=== PATIENT | male | born 1980 | race Hispanic/Latino ===

== ENCOUNTER 2024-05-06 12:40 | Emergency (ER) | payer OTHER ==
[~2024-05-06] VITALS: Ht 182.9 cm; Wt 146.2 kg
[2024-05-06] MEDS ORDERED: METFORMIN HCL500 MG PO (13:03)
[2024-05-06] MEDS ORDERED: MOUNJARO2.5 MG/0.5 (13:03)
[2024-05-06] MEDS ORDERED: ARIMIDEX1 MG PO (13:03)
[2024-05-06] MEDS ORDERED: DONNATAL/LIDOCAINE/MAALOX 30 ML SUSP PO ONE (13:15)
[2024-05-06] MEDS ORDERED: SODIUM CHLORIDE 0.9% 1000ML 1,000 ML ONE (13:22)
[2024-05-06] MEDS ORDERED: IOPAMIDOL 370 MG/ML 100 ML INFUS..BTL INJ ONE (13:22)
[2024-05-06] MEDS: KETOROLAC TROMETHAMINE 30 MG/ML VIAL IV STA (13:33)
[2024-05-06] MEDS: FAMOTIDINE 20 MG/2 ML VIAL IV STA (13:33)
[2024-05-06] MEDS: ONDANSETRON HCL INJ 2MG/ML 2ML 2 MG/ML VIAL IV STA (13:34)
[2024-05-06] MEDS: SODIUM CHLORIDE 0.9% 100 ML IV ONE (14:33)
[2024-05-06] MEDS ORDERED: OMEPRAZOLE40 MG PO (15:18)
[2024-05-06] MEDS ORDERED: ACETAMINOPHEN-1 EAC4 PO (15:20)
[2024-05-06 15:57] VITALS: PULSE 64; RESP 18; TEMP 97.6; O2SAT 98
[2024-05-06] MEDS ORDERED: CLOMID (22:42)
== END 2024-05-06 16:10 | disposition home or self-care (01) ==
LOC: FSED 12:53
DX: R10.13 Epigastric pain (principal); K29.80 Duodenitis without bleeding; K80.20 Calculus of gallbladder without cholecystitis without obstruction; R11.0 Nausea; E11.65 Type 2 diabetes mellitus with hyperglycemia
CPT/HCPCS: 71046; 74177; 76705; 80053; 80076; 81003; 84484; 85025; 93005; 99283; J1885; J2405; J7030; Q9967

== ENCOUNTER 2024-05-06 18:40 | Inpatient (IN) | payer OTHER ==
[~2024-05-06] VITALS: Ht 190.5 cm; Wt 105.8 kg
[~2024-05-06 18:40] MED LIST: ACETAMINOPHEN-1 EAC4 PO; ARIMIDEX1 MG PO; METFORMIN HCL500 MG PO; MOUNJARO2.5 MG/0.5; OMEPRAZOLE40 MG PO
[2024-05-06] MEDS ORDERED: SODIUM CHLORIDE 0.9% 1000ML 1,000 ML IV SCH ×2 (18:45→19:19)
[2024-05-06 19:06] VITALS: PULSE 75; RESP 18; TEMP 97.2
[2024-05-06 19:10] VITALS: PULSE 76; RESP 18; O2SAT 98
[2024-05-06] MEDS: Morphine 4mg INJECTION 4 MG/ML INJ IV ONE ×2 (19:28→20:26)
[2024-05-06] MEDS: ONDANSETRON HCL INJ 2MG/ML 2ML 2 MG/ML VIAL IV STA (19:28)
[2024-05-06] MEDS: KETOROLAC TROMETHAMINE 30 MG/ML VIAL IV STA (19:29)
[2024-05-06 20:59] VITALS: BP 140/86; PULSE 71; RESP 19; TEMP 98.2; O2SAT 97
[2024-05-06 21:00] VITALS: BP 140/86; PULSE 71; RESP 19; TEMP 98.2; O2SAT 97
[2024-05-06] MEDS: SODIUM CHLORIDE 0.9% 1000ML 1,000 ML IV STA (21:59)
[2024-05-06] MEDS: ONDANSETRON HCL INJ 2MG/ML 2ML 2 MG/ML VIAL IV PRN (22:25)
[2024-05-06] MEDS: SODIUM CHLORIDE 0.9% 1000ML 1,000 ML IV SCH (22:25)
[2024-05-06] MEDS: HYDROMORPHONE 1MG/1ML INJ IV PRN (22:26)
[2024-05-06] MEDS ORDERED: CLOMID (22:42)
[2024-05-07] VITALS (9 sets, daily range): BP systolic 98–147; BP diastolic 52–87; PULSE 68–107; RESP 16–21; TEMP 97.8–98.9; O2SAT 92–99
[2024-05-07] MEDS ORDERED: DEXTROSE 50% SYRINGE 50 ML IV PRN (10:30)
[2024-05-07 13:14] LABS: BASOPHILS % 0.2 % (0.0-1.0); EOSINOPHILS % 0.1 % (0.0-6.0); HEMATOCRIT 46.9 % (38.2-49.6); HEMOGLOBIN 14.4 g/dL (14.0-18.0); LYMPHOCYTES # (AUTO) 2.5 (1.0-3.2); LYMPHOCYTES % 20.2 % (18.0-39.1); MEAN CORPUSCULAR HGB CONC 30.7 g/dL (31-35); MEAN CORPUSCULAR VOLUME 94.6 fL (81-99); MONOCYTES # (AUTO) 0.8 (0.2-0.8); MONOCYTES % 6.8 % (4.4-11.3); NEUTROPHILS # (AUTO) 8.8 (2.1-6.9); NEUTROPHILS % 72.4 % (38.7-80.0); PLATELET COUNT 210 x10e3/uL (140-360); RED BLOOD COUNT 4.96 x10e6/uL (4.3-5.7); RED CELL DISTRIBUTION WIDTH 14.5 % (11.7-14.4); WHITE BLOOD COUNT 12.14 x10e3/uL (4.8-10.8)
[2024-05-07 13:47] LABS: ALBUMIN 3.2 g/dL (3.5-5.0); ALBUMIN/GLOBULIN RATIO 0.9 (0.8-2.0); ANION GAP 12.1 mmol/L (8-16); BILIRUBIN,TOTAL 2.2 mg/dL (0.2-1.2); CALCIUM 8.3 mg/dL (8.4-10.2); CREATININE, SERUM 1.13 mg/dL (0.72-1.25); POTASSIUM 4.1 mmol/L (3.5-5.1); TOTAL PROTEIN 6.7 g/dL (6.5-8.1)
[2024-05-07] MEDS ORDERED: SUCCINYLCHOLINE CHLORIDE 20 MG/ML 10ML VIAL ONE (14:47)
[2024-05-07] MEDS ORDERED: PROPOFOL IV EMULSION 10 MG/ML 20 ML VIAL ONE (14:47)
[2024-05-07] MEDS ORDERED: ROCURONIUM BROMIDE 1 ML IV ONE (14:47)
[2024-05-07] MEDS ORDERED: FENTANYL CITRATE/PF 100MCG/2 ML INJ ONE (14:48)
[2024-05-07] MEDS ORDERED: HYDROMORPHONE 2MG/ML ONE (15:22)
[2024-05-07] MEDS ORDERED: SUGAMMADEX SODIUM 200 MG/2 ML VIAL IV ONE (15:33)
[2024-05-07] MEDS ORDERED: ROCURONIUM BROMIDE 2 ML IV ONE (15:45)
[2024-05-07] MEDS ORDERED: ONDANSETRON HCL INJ 2MG/ML 2ML 2 MG/ML VIAL ONE (15:53)
[2024-05-07] MEDS ORDERED: METOCLOPRAMIDE HCL 10 MG/2ML VIAL ONE (15:53)
[2024-05-07] MEDS ORDERED: KETOROLAC TROMETHAMINE 30 MG/ML VIAL ONE (15:53)
[2024-05-07] MEDS ORDERED: DEXAMETHASONE SOD PHOS INJ 4 MG/ML SDV ONE (15:53)
[2024-05-07] MEDS ORDERED: LABETALOL HCL 20 ML ONE (15:54)
[2024-05-07] MEDS ORDERED: EPHEDRINE SULFATE INJ 50 MG/ML VIAL ONE (15:59)
[2024-05-07] MEDS ORDERED: LACTATED RINGER'S 1,000 ML ONE ×2 (16:02)
[2024-05-07] MEDS ORDERED: SEVOFLURANE INHAL SOLN 250 ML PEN BTL ONE (16:02)
[2024-05-07] MEDS: INSULIN REGULAR, HUMAN 100 UNIT/1 ML SQ SCH (18:00)
[2024-05-08] VITALS (11 sets, daily range): BP systolic 124–177; BP diastolic 77–100; PULSE 79–116; RESP 18–22; TEMP 97.7–102.4; O2SAT 92–100
[2024-05-08] MEDS: KETOROLAC TROMETHAMINE 30 MG/ML VIAL IV PRN (00:39)
[2024-05-08] MEDS: ONDANSETRON HCL INJ 2MG/ML 2ML 2 MG/ML VIAL IV PRN (00:39)
[2024-05-08] MEDS: HYDROCODONE/APAP 7.5MG-325MG 1 EA TAB PO PRN (04:45)
[2024-05-08] MEDS: INSULIN REGULAR, HUMAN 100 UNIT/1 ML SQ SCH (07:30)
[2024-05-08] MEDS: HYDROMORPHONE 1MG/1ML INJ IV PRN (08:14)
[2024-05-08 09:24] LABS: BASOPHILS % 0.1 % (0.0-1.0); HEMOGLOBIN 13.1 g/dL (14.0-18.0); LYMPHOCYTES # (AUTO) 1.7 (1.0-3.2); LYMPHOCYTES % 11.1 % (18.0-39.1); MEAN CORPUSCULAR HGB CONC 31.2 g/dL (31-35); MEAN CORPUSCULAR VOLUME 93.1 fL (81-99); MONOCYTES # (AUTO) 1.1 (0.2-0.8); MONOCYTES % 6.7 % (4.4-11.3); NEUTROPHILS # (AUTO) 12.7 (2.1-6.9); NEUTROPHILS % 81.7 % (38.7-80.0); PLATELET COUNT 189 x10e3/uL (140-360); RED BLOOD COUNT 4.51 x10e6/uL (4.3-5.7); RED CELL DISTRIBUTION WIDTH 14.5 % (11.7-14.4); WHITE BLOOD COUNT 15.61 x10e3/uL (4.8-10.8)
[2024-05-08 09:39] LABS: ALBUMIN/GLOBULIN RATIO 0.9 (0.8-2.0); ANION GAP 12.7 mmol/L (8-16); BILIRUBIN,TOTAL 2.1 mg/dL (0.2-1.2); CALCIUM 8.4 mg/dL (8.4-10.2); CREATININE, SERUM 1.35 mg/dL (0.72-1.25); POTASSIUM 3.7 mmol/L (3.5-5.1); TOTAL PROTEIN 6.3 g/dL (6.5-8.1)
[2024-05-08] MEDS: SODIUM CHLORIDE 0.9% 1000ML 1,000 ML IV SCH (15:56)
[2024-05-08] MEDS: ACETAMINOPHEN 325 MG TAB PO PRN (20:44)
[2024-05-08] MEDS: HYDRALAZINE HCL 20 MG/ML VIAL IV PRN (23:24)
[2024-05-09] VITALS (10 sets, daily range): BP systolic 144–181; BP diastolic 88–97; PULSE 90–103; RESP 16–22; TEMP 98.5–101.1; O2SAT 96–100
[2024-05-09] MEDS: CLONIDINE HCL 0.1 MG TAB PO ONE (04:18)
[2024-05-09 05:24] LABS: BASOPHILS % 0.2 % (0.0-1.0); EOSINOPHILS % 0.1 % (0.0-6.0); HEMATOCRIT 44.2 % (38.2-49.6); HEMOGLOBIN 13.9 g/dL (14.0-18.0); LYMPHOCYTES # (AUTO) 1.8 (1.0-3.2); LYMPHOCYTES % 9.2 % (18.0-39.1); MEAN CORPUSCULAR HEMOGLOBIN 28.9 pg (28-32); MEAN CORPUSCULAR HGB CONC 31.4 g/dL (31-35); MEAN CORPUSCULAR VOLUME 91.9 fL (81-99); MONOCYTES # (AUTO) 1.6 (0.2-0.8); NEUTROPHILS # (AUTO) 16.4 (2.1-6.9); NEUTROPHILS % 81.8 % (38.7-80.0); PLATELET COUNT 201 x10e3/uL (140-360); RED BLOOD COUNT 4.81 x10e6/uL (4.3-5.7); RED CELL DISTRIBUTION WIDTH 14.6 % (11.7-14.4); WHITE BLOOD COUNT 19.96 x10e3/uL (4.8-10.8)
[2024-05-09 05:44] LABS: ALBUMIN 2.9 g/dL (3.5-5.0); ALBUMIN/GLOBULIN RATIO 0.8 (0.8-2.0); ANION GAP 15.8 mmol/L (8-16); BILIRUBIN,TOTAL 2.3 mg/dL (0.2-1.2); CALCIUM 8.5 mg/dL (8.4-10.2); CREATININE, SERUM 1.17 mg/dL (0.72-1.25); POTASSIUM 3.8 mmol/L (3.5-5.1); TOTAL PROTEIN 6.7 g/dL (6.5-8.1)
[2024-05-09] MEDS ORDERED: ALBUTEROL/IPRATROPIUM 3 ML NEB NEB PRN (12:45)
[2024-05-09] MEDS: Vancomycin IV 1 GM in SODIUM CHLORIDE 0.9% 250ML 250 ML IV ONE (15:42)
[2024-05-09 19:33] LABS: BILIRUBIN,URINE NEGATIVE (NEGATIVE); CLARITY,URINE CLEAR (CLEAR); GLUCOSE, URINE NEGATIVE (NEGATIVE); KETONES,URINE NEGATIVE (NEGATIVE); LEUKOCYTE ESTERASE ,URINE NEGATIVE (NEGATIVE); NITRITE,URINE NEGATIVE (NEGATIVE); PH,URINE 6.5 (5 - 7); PROTEIN,URINE DIPSTICK NEGATIVE (NEGATIVE); URINE UROBILINOGEN 0.2 mg/dL (0.2 - 1)
[2024-05-09 19:44] LABS: COLOR,URINE YELLOW (YELLOW)
[2024-05-09] MEDS ORDERED: CLONIDINE HCL 0.1 MG TAB PO PRN (20:15)
[2024-05-09] MEDS: LACTATED RINGER'S 1,000 ML INJ SCH (21:04)
[2024-05-10] VITALS (9 sets, daily range): BP systolic 128–154; BP diastolic 73–94; PULSE 75–102; RESP 14–20; TEMP 97.9–100.2; O2SAT 95–99
[2024-05-10 04:48] LABS: BASOPHILS % 0.2 % (0.0-1.0); EOSINOPHILS # (AUTO) 0.2 (0.0-0.4); HEMATOCRIT 41.4 % (38.2-49.6); HEMOGLOBIN 12.8 g/dL (14.0-18.0); LYMPHOCYTES # (AUTO) 2.3 (1.0-3.2); LYMPHOCYTES % 13.5 % (18.0-39.1); MEAN CORPUSCULAR HEMOGLOBIN 28.5 pg (28-32); MEAN CORPUSCULAR HGB CONC 30.9 g/dL (31-35); MEAN CORPUSCULAR VOLUME 92.2 fL (81-99); MONOCYTES # (AUTO) 1.2 (0.2-0.8); MONOCYTES % 7.1 % (4.4-11.3); NEUTROPHILS # (AUTO) 13.1 (2.1-6.9); NEUTROPHILS % 77.7 % (38.7-80.0); PLATELET COUNT 207 x10e3/uL (140-360); RED BLOOD COUNT 4.49 x10e6/uL (4.3-5.7); RED CELL DISTRIBUTION WIDTH 14.4 % (11.7-14.4)
[2024-05-10 05:06] LABS: ALBUMIN 2.4 g/dL (3.5-5.0); ANION GAP 13.5 mmol/L (8-16); BILIRUBIN,DIRECT 0.9 mg/dL (0.0-0.5); BILIRUBIN,TOTAL 1.9 mg/dL (0.2-1.2); CALCIUM 8.5 mg/dL (8.4-10.2); CREATININE, SERUM 0.98 mg/dL (0.72-1.25); POTASSIUM 3.5 mmol/L (3.5-5.1); TOTAL PROTEIN 6.3 g/dL (6.5-8.1)
[2024-05-11 03:49] VITALS: BP 123/64; PULSE 78; RESP 18; TEMP 98.4; O2SAT 96
[2024-05-11 06:14] LABS: BASOPHILS % 0.2 % (0.0-1.0); EOSINOPHILS # (AUTO) 0.4 (0.0-0.4); EOSINOPHILS % 3.1 % (0.0-6.0); HEMATOCRIT 39.8 % (38.2-49.6); HEMOGLOBIN 13.1 g/dL (14.0-18.0); LYMPHOCYTES # (AUTO) 2.9 (1.0-3.2); LYMPHOCYTES % 22.9 % (18.0-39.1); MEAN CORPUSCULAR HGB CONC 32.9 g/dL (31-35); MEAN CORPUSCULAR VOLUME 88.1 fL (81-99); MONOCYTES # (AUTO) 0.9 (0.2-0.8); NEUTROPHILS # (AUTO) 8.3 (2.1-6.9); NEUTROPHILS % 66.3 % (38.7-80.0); PLATELET COUNT 248 x10e3/uL (140-360); RED BLOOD COUNT 4.52 x10e6/uL (4.3-5.7); RED CELL DISTRIBUTION WIDTH 14.4 % (11.7-14.4); WHITE BLOOD COUNT 12.56 x10e3/uL (4.8-10.8)
[2024-05-11 06:42] LABS: ALBUMIN 2.4 g/dL (3.5-5.0); ALBUMIN/GLOBULIN RATIO 0.6 (0.8-2.0); ANION GAP 14.4 mmol/L (8-16); BILIRUBIN,TOTAL 1.2 mg/dL (0.2-1.2); CALCIUM 8.7 mg/dL (8.4-10.2); CREATININE, SERUM 0.98 mg/dL (0.72-1.25); TOTAL PROTEIN 6.7 g/dL (6.5-8.1)
[2024-05-11 06:44] LABS: POTASSIUM 3.4 mmol/L (3.5-5.1)
[2024-05-11 08:00] VITALS: BP 141/78; PULSE 81; RESP 17; TEMP 97.7; O2SAT 98
[2024-05-11 08:10] VITALS: BP 141/78; PULSE 81; RESP 17; TEMP 97.7; O2SAT 98
[2024-05-11 12:00] VITALS: BP 122/70; PULSE 73; RESP 16; TEMP 98.3; O2SAT 96
[2024-05-11 13:24] VITALS: PULSE 86; RESP 18; O2SAT 98
[2024-05-11 16:00] VITALS: BP 136/93; PULSE 78; RESP 18; TEMP 97.7; O2SAT 99
== END 2024-05-11 18:30 | disposition home or self-care (01) | DRG 417 ==
LOC: FSED 18:42 → ERHOLD 18:52 → MED/SURG 20:59 → OBSVTOIN 05-07 11:38 → MED/SURG2 05-11 14:13
PROVIDERS: ADMIT Internal Medicine; ATTEND Internal Medicine
PROC: 0FT44ZZ Resection of Gallbladder, Percutaneous Endoscopic Approach (ICD-10-PCS; principal; 2024-05-07 15:18)
DX: K80.12 Calculus of gallbladder with acute and chronic cholecystitis without obstruction (principal); K85.10 Biliary acute pancreatitis without necrosis or infection; N17.9 Acute kidney failure, unspecified; J98.11 Atelectasis; K82.A1 Gangrene of gallbladder in cholecystitis; K29.80 Duodenitis without bleeding; K76.0 Fatty (change of) liver, not elsewhere classified; E11.9 Type 2 diabetes mellitus without complications; Z79.85 Long-term (current) use of injectable non-insulin antidiabetic drugs; Z79.84 Long term (current) use of oral hypoglycemic drugs; Z79.899 Other long term (current) drug therapy
CPT/HCPCS: 36415; 71045; 74181; 80048; 80053; 80076; 81001; 82948; 83690; 85025; 87040; 88304; 94799; 99283; C1766; G0378; J0330; J0360; J1100; J1171; J1885; J2270; J2405; J2470; J2543; J2765; J7030; J7050